=== PATIENT | female | born 1960 | race Caucasian/White ===

== ENCOUNTER 2021-08-24 21:37 | Emergency (ER) | payer BC, OTHER ==
[2021-08-24 22:04] LABS: BASOPHILS # (AUTO) 0.1 10^3/uL (0.0-0.1); BASOPHILS % (AUTO) 1.2 %; EOSINOPHILS # (AUTO) 0.4 10^3/uL (0.0-0.7); HCT - HEMATOCRIT 39.2 % (37.0-47.0); HGB - HEMOGLOBIN 13.1 g/dL (12.0-16.0); LYMPHOCYTES # (AUTO) 3.5 10^3/uL (1.5-3.5); LYMPHOCYTES % (AUTO) 35.9 %; MEAN CORPUSCULAR HGB CONC 33.4 g/dL (32.0-36.0); MEAN CORPUSCULAR VOLUME 86.7 fL (81.0-99.0); MEAN PLATELET VOLUME 10.5 fL (7.9-10.8); MONOCYTES % (AUTO) 9.8 %; NEUTROPHILS # (AUTO) 4.7 10^3/uL (1.5-6.6); NEUTROPHILS % (AUTO) 48.8 %; PLT - PLATELET COUNT 332 10^3/uL (130-450); RED BLOOD COUNT 4.52 10^6/uL (4.20-5.40); RED CELL DISTRIBUTION WIDTH 12.6 % (12.0-15.0); WHITE BLOOD COUNT 9.7 x10^3/uL (4.8-10.8)
[2021-08-24 22:20] LABS: ALBUMIN 4.5 g/dL (3.2-5.5); ALBUMIN/GLOBULIN RATIO 1.4 (1.0-2.2); BILIRUBIN,TOTAL 0.6 mg/dL (0.2-1.0); CALCIUM 9.7 mg/dL (8.5-10.3); CREATININE 0.8 mg/dL (0.4-1.0); MAGNESIUM 1.5 mg/dL (1.7-2.8); PHOSPHORUS 3.7 mg/dL (2.5-4.6); TOTAL PROTEIN 7.7 g/dL (6.7-8.2)
--- NOTE | 2021-08-24 22:47 | ED Physician Documentation ---
History of Present Illness - Stated complaint Stated Complaint: CHYEANNE BARBOSA, LOW SODIUM - Chief complaint Chief Complaint: General - History obtained from History obtained from: Patient - History of Present Illness Timing: Today Pain level max: 0 Pain level now: 0 - Additonal information Additional information: Patient is asymptomatic. She saw her primary care provider earlier today , routine check-up which included blood tests. She received a call this evening instructing her to go to the emergency department because of a low sodium result (119). She says she has no h/o low sodium and denies symptoms such as headache, confusion, difficulty concentrating, ataxia, dizziness. Review of Systems GI: denies: Nausea, Vomiting Neurologic: denies: Generalized weakness, Confused, Headache PD PAST MEDICAL HISTORY - Past Medical History Past Medical History: Yes Cardiovascular: Hypertension, High cholesterol Endocrine/Autoimmune: Type 2 diabetes - Past Surgical History Past Surgical History: Yes /[employer]: Hysterectomy - Present Medications Home Medications: Ambulatory Orders Medication Instructions Recorded Confirmed Atorvastatin [Lipitor] 10 mg PO DAILY 08/24/21 08/24/21 Dulaglutide [Trulicity] 08/24/21 Levothyroxine [Synthroid] 75 mcg PO DAILY 08/24/21 08/24/21 Lisinopril/Hydrochlorothiazide 1 tab PO DAILY 08/24/21 08/24/21 [Zestoretic 20-12.5 mg Tablet] Metformin HCl [Metformin ER 1,000 mg PO BID 08/24/21 08/24/21 Osmotic] Montelukast Sodium 10 mg PO DAILY 08/24/21 08/24/21 - Allergies Allergies/Adverse Reactions: Allergies Allergy/AdvReac Type Severity Reaction Status Date / Time No Known Drug Allergies Allergy Verified 08/24/21 21:49 - Social History Does the pt smoke?: No Smoking Status: Never smoker Does the pt drink ETOH?: No Does the pt have substance abuse?: No - Immunizations Immunizations are current?: Yes PD ED PE NORMAL - Vitals Vital signs reviewed: Yes - General General: Alert and oriented X 3, No acute distress, Well developed/nourished - HEENT HEENT: Moist mucous membranes - Cardiac Cardiac: RRR, No murmur - Neuro Neuro: Alert and oriented X 3 - Psych Psych: Normal mood, Normal affect Results - Vitals Vitals: Oxygen O2 Source Room air - Labs Labs: Laboratory Tests 08/24/21 08/24/21 22:00 22:00 WBC 9.7 RBC 4.52 Hgb 13.1 Hct 39.2 MCV 86.7 MCH 29.0 MCHC 33.4 RDW 12.6 Plt Count 332 MPV 10.5 Neut # (Auto) 4.7 Lymph # (Auto) 3.5 [place] # (Auto) 1.0 Eos # (Auto) 0.4 Baso # (Auto) 0.1 Absolute Nucleated RBC 0.00 Nucleated RBC % 0.0 Sodium 136 Potassium 3.0 L Chloride 96 L Carbon Dioxide 25 Anion Gap 15.0 H BUN 16 Creatinine 0.8 Estimated GFR (MDRD) 73 L Glucose 180 H Calcium 9.7 Phosphorus 3.7 Magnesium 1.5 L Total Bilirubin 0.6 AST 29 ALT 28 Alkaline Phosphatase 61 Total Protein 7.7 Albumin 4.5 Globulin 3.2 Albumin/Globulin Ratio 1.4 PD MEDICAL DECISION MAKING - ED course Complexity details: reviewed results, re-evaluated patient, considered differential, d/w patient ED course: normal sodium on tonight's draw (136). Potassium is 3.0, given 20meq KCL PO. Magnesium 1.5, glucose 180. Results d/w patient. Suspect the hyponatremia on the outpatient test was inaccurate, as she has not having nor had symptoms s/o hyponatremia, and this result would not have corrected so rapidly without specific intervention. Departure - Departure Disposition: 01 Home, Self Care Clinical Impression: Hypokalemia Condition: Good Instructions: ED Potassium Deficiency Follow-Up: YELITZA VERGARA MD [Primary Care Provider] - Comments: As we discussed, your sodium level is normal on our blood draw (136). Sodium levels do not fluctuate rapidly unless medical intervention is undertaken (such as being given IV fluids), so the most likely explanation is that the earlier result of a low sodium level was inaccurate. Your potassium level is a little low tonight (3.0) for which you were given a one-time dose of oral potassium. You should mention this to your doctor, as they might recommend having the level rechecked in the next 1-2 weeks to make sure that the potassium level has normalized. A minimally low magnesium level was also noted, but this is not low enough to cause concern nor need to be addressed at this time. Your doctor might recheck this level, at their discretion. Discharge Date/Time: 08/24/21 23:14
[2021-08-24] MEDS ORDERED: POTASSIUM CHLORIDE 20 MEQ TABLET PO STA (23:01)
[2021-08-24 23:15] VITALS: BP 138/81
== END 2021-08-24 23:14 | disposition home or self-care (01) ==
LOC: ED 21:37
DX: E87.6 Hypokalemia (principal); I10 Essential (primary) hypertension; E11.9 Type 2 diabetes mellitus without complications; Z79.4 Long term (current) use of insulin
CPT/HCPCS: 36415; 80053; 83735; 84100; 85025; 99282; 99283; A9270